=== PATIENT | male | born 1975 | race Caucasian/White ===

== ENCOUNTER 2023-12-23 11:44 | Emergency (ER) | payer OTHER | END 2023-12-23 13:22 | disposition home or self-care (01) | LOC: VM.ED 11:44 | DX: S06.0X9A Concussion with loss of consciousness of unspecified duration, initial encounter (principal); I10 Essential (primary) hypertension; Z88.0 Allergy status to penicillin; Z79.899 Other long term (current) drug therapy; W00.0XXA Fall on same level due to ice and snow, initial encounter | CPT/HCPCS: 70450; 99284 ==